=== PATIENT | female | born 2005 | race Caucasian/White ===

== ENCOUNTER 2023-04-23 17:58 | Emergency (ER) | payer MEDICAID ==
--- NOTE | 2023-04-23 18:15 | ERPHSYRPT ---
- History of Present Illness Time Seen by Provider: 04/23/23 18:15 Source: patient Exam Limitations: no limitations Physician History: 17yo F presents to ER accompanied by her mother w/ right sided leg pain and swelling. Patient reports twisting and falling on her right leg, but mother was unaware of the injury. No previous injury, surgery, blood clots or clotting d/o reported. Patient does have a hx of intellectual disability and chromosomal abnormality. She denies fever, chills, CP or SOB. No redness of the RLE. Method of Injury: fell, twisted Occurred: last week Quality: constant, sharpness Severity of Pain-Max: moderate Severity of Pain-Current: moderate Lower Extremities Pain: leg: right Modifying Factors: Improves With: nothing. Worsens With: movement Associated Symptoms: none Allergies/Adverse Reactions: No Known Drug Allergies Allergy (Unverified 04/23/23 18:02) Home Medications: Clonidine HCl 0.1 mg [Clonidine 0.1 mg Tablet] 0.1 mg PO HS 04/23/23 [History] Levothyroxine Sodium 50 Mcg [Synthroid 50 Mcg] 50 mcg PO DAILY 04/23/23 [History] Methylphenidate HCl [Quillivant Xr] 10 ml PO DAILY 04/23/23 [History] - Review of Systems Constitutional: No Symptoms Eyes: No Symptoms Ears, Nose, & Throat: No Symptoms Respiratory: No Symptoms Cardiac: No Symptoms Abdominal/Gastrointestinal: No Symptoms Genitourinary Symptoms: No Symptoms Musculoskeletal: Fall, Injury, Joint Pain (RLE), Joint Swelling (RLE), No Joint Redness Skin: No Symptoms Neurological: No Symptoms Hematologic/Lymphatic: No Blood Clots - Nursing Vital Signs Nursing Vital Signs: Initial Vital Signs Pulse Rate 115 H 04/23/23 18:09 Respiratory Rate 18 04/23/23 18:09 Blood Pressure 103/83 04/23/23 18:09 O2 Sat by Pulse Oximetry 98 04/23/23 18:09 Pain Scale Pain Intensity 2 - Physical Exam General Appearance: no apparent distress Cardiovascular/Respiratory Exam: chest non-tender, normal breath sounds, regular rate/rhythm Legs Exam: right leg: normal range of motion, bone tenderness (mid shaft fibula), pain (RLE), swelling (RLE) Knees Exam: right knee: non-tender, normal inspection, normal range of motion, no evidence of injury Ankle Exam: right ankle: non-tender, normal inspection, normal range of motion, no evidence of injury Neuro/Tendon Exam: normal sensation, normal motor functions, normal tendon functions, responds to pain Mental Status Exam: alert, cooperative Skin Exam: normal color, warm, dry SpO2 Interpretation: normal O2 Delivery: Room Air - Radiology Exams Right Lower Leg X-ray Interpretation: Interpreted by me, Non-displaced Fracture (shaft of fibula) - Radiology Ultrasound Exam Venous Lower Extremity Ultrasound: tele radiology report (right posterior tibial vein non occluding DVT) - Progress Progress: unchanged Progress Note: Small cortical irregularity noted on XR of mid shaft fibula right where she was TTP. Decision was made to place in walking boot at this time. Recommended f/u w/ ortho walk in. US showed posterior tibial vein non occluding thrombus in the RLE. Patient started on Xarelto and recommended f/u for coagulation workup. Counseled pt/family regarding: diagnosis, need for follow-up, rad results Medical Desision Making - Independent Historian Additional History obtained from: Mother - Diagnostic Testing Diagnostic test were ordered, analyzed, and reviewed by me: Yes Radiological Interpretation: Interpreted by me, Reviewed by me, Teleradiologist Report - Risk of complications The pt has a mod risk of morbidity or mortality based on: Need for prescription drug management - Departure Departure Disposition: Home Clinical Impression: Fracture, fibula, shaft, Chronic posterior tibial vein thrombosis Condition: Good Critical Care Time: No Referrals: SHERRY ZIMMERMAN [Primary Care Provider] - Follow up/PCP as directed JOSEPH - ARI MYERS NP [NON-STAFF PHY W/O PRIVILEGES] - Follow up/PCP as directed Instructions: Deep vein thrombosis (blood clot in the legs), Deep Vein Thrombosis (Blood Clots in the Legs) (DC) Prescriptions: Rivaroxaban [Xarelto] 15 mg PO BID 21 Days tablet Rivaroxaban [Xarelto] 20 mg PO DAILY #70 tablet
[2023-04-23 18:25] VITALS: BP 103/83; PULSE 115; O2SAT 98
[2023-04-23 19:27] VITALS: RESP 16
--- NOTE | 2023-04-23 20:27 | XRAY ---
Indication: Pain and swelling following fall. Comparison: None 2 view right lower leg obtained. No bony, articular, or soft tissue abnormalities.
--- NOTE | 2023-04-26 08:32 | XRAY ---
Indication: Pain and swelling. Two-dimensional sonogram and color Doppler imaging of the major venous vessels of the right leg performed. Comparison: None Nonoccluding thrombi seen in posterior tibial vein. No thrombus seen in the remaining examined deep venous vessels of the right leg including greater saphenous vein. Patent veins demonstrate normal compressibility. Venous waveforms are normal with and without augmentation. Impression: Nonoccluding DVT posterior tibial vein. Comment: Preliminary report was given.
== END 2023-04-23 20:34 | disposition home or self-care (01) ==
LOC: ED 17:58
DX: S82.491A Other fracture of shaft of right fibula, initial encounter for closed fracture (principal); W19.XXXA Unspecified fall, initial encounter; I82.541 Chronic embolism and thrombosis of right tibial vein; Z79.01 Long term (current) use of anticoagulants; M79.604 Pain in right leg; Z79.899 Other long term (current) drug therapy
CPT/HCPCS: 73590; 93971; 99283; L4386